=== PATIENT | male | born 1995 | race Caucasian/White ===

== ENCOUNTER 2023-10-26 00:02 | Inpatient (IN) | payer OTHER, SELFPAY ==
--- OUTSIDE RECORDS SUMMARY | 2023-10-26 00:07 | XMS_ITS | Continuity of Care Document ---
Author Organization [facility] [place], operated [facility] er Address [address] [place] [id number] Care Team Providers Care Yard Stocker Name Role Phone NONE, NONE Primary Care Physician Unavailab le Encounter 10/08/23 - 10/09/23 [facility] [address] [place] [address] [phone] Encounter Diagnosis Head pain, chronic(Discharge Diagnosis) - 10/09/23 Other chronic pain(Discharge Diagnosis) - 10/09/23 History of traumatic head injury(Discharge Diagnosis) - 10/09/23 Encounter for medical assessment(Discharge Diagnosis) - 10/09/23 Discharge Disposition: Home or Self Care 01 Attending Physician: AURORA JOHNS MD Admitting Physician: AURORA JOHNS MD Allergies, Adverse Reactions, Alerts Substance Reaction Severity Status Tape Rash Active Dairy Rash Active Vital Signs Most recent to oldest [Reference Range]: 1 Temperature Oral [36-38 Deg C] 36.8 Deg C (10/09/23 12:07 AM) Temperature Oral F [96.8-100.4 Deg F] 98 .2 Deg F (10/09/23 12:07 AM) Peripheral Pulse Rate [60-100 bpm] 56 bp m *LOW* (10/09/23 12:07 AM) Respiratory Rate [14-20 br/min] 16 br/mi n (10/09/23 12:07 AM) Blood Pressure [90-140/90 mmHg] 154/105m mHg *HI* (10/09/23 12:07 AM) Mean Arterial Pressure, Cuff [60-110 mmH g] 121 mmHg *HI* (10/09/23 12:07 AM) Height/Length Measured [124.5-243.8 cm] 178 cm (10/09/23 12:07 AM) [place] Body Weight Calculated 73.18 kg (10/09/23 12:07 AM) Weight ED 145 lb (10/09/23 12:07 AM) Weight Method Type Estimated (10/09/23 12:07 AM) Social History Social History Type Response Sex Male Hospital Discharge Instructions Patient Education 10/09/2023 01:13:48 Chronic Migraine Headache, Lbez-vl-Cpwj Chronic Migraine Headache A migraine headache is throbbing pain that is usually on one side of the head. Migraines that keep coming back are called recurring migraines. A migraine is called a chronic migraine if it happens atleast 15 days in a month for more than 3 months. Talk with your doctor about what things may bring on (trigger) your migraines. What are the causes? The exact cause of this condition is not known. A migraine may be caused when nerves in the brain become irritated and release chemicals that cause irritation and swelling (inflammation) of blood vessels. The irritation and swelling of the blood vessels causes pain. Migraines may be brought on or caused by: ??? Smoking. ??? Foods and drinks, such as: ??? Cheese. ??? Chocolate. ??? Alcohol. ??? Caffeine. ??? Certain substances in some foods or drinks. ??? Some medicines. Other things that may bring on a migraine include: ??? Periods, for women. ??? Stress. ??? Not enough sleep or too much sleep. ??? Feeling very tired. ??? Bright lights or loud noises. ??? Smells ??? Weather changes and being at high altitude. What increases the risk? The following factors may make you more likely to have chronic migraine: ??? Having migraines or family members who have them. ??? Being very sad (depressed) or feeling worried or nervous (anxious). ??? Taking a lot of pain medicine. ??? Having problems sleeping. ??? Having heart disease, diabetes, or being very overweight (obese). What are the signs or symptoms? Symptoms of this condition include: ??? Pain that feels like it throbs. ??? Pain that is usually only on one side of the head. In some cases, the pain may be on both sidesof the head or around the head or neck. ??? Very bad pain that keeps you from doing daily activities. ??? Pain that gets worse with activity. ??? Feeling like you may vomit (feeling nauseous) or vomiting. ??? Pain when you are around bright lights, loud noises, or activity. ??? Being sensitive to bright lights, loud noises, or smells. ??? Feeling dizzy. How is this treated? This condition is treated with: ??? Medicines. These help to: ??? Lessen pain and the feeling like you may vomit. ??? Prevent migraines. ??? Changes to your diet or sleep. ??? Therapy. This might include: ??? Relaxation training. ??? Biofeedback. This is a treatment that teaches you to relax, use your brain to lower your heart rate, and control your breathing. ??? Cognitive behavioral therapy (CBT). This therapy helps you set goals and follow up on the changes that you make. ??? Acupuncture. ??? Using a device that provides electrical stimulation to your nerves, which can help take away pain. ??? Surgery, if the other treatments do not work. Follow these instructions at home: Medicines ??? Take epyf-xkw-aohnrpw and prescription medicines only as told by your doctor. ??? Ask your doctor if the medicine prescribed to you requires you to avoid driving or using machinery. Lifestyle ??? Do not use any products that contain nicotine or tobacco, such as cigarettes, e-cigarettes, andchewing tobacco. If you need help quitting, ask your doctor. ??? Do not drink alcohol. ??? Get 7???9 hours of sleep each night. ??? Lower the stress in your life. Ask your doctor about ways to do this. ??? Stay at a healthy weight. Talk with your doctor if you need help losing weight. ??? Get regular exercise. General instructions ??? Keep a journal to find out if certain things bring on migraines. For example, write down: ??? What you eat and drink. ??? How much sleep you get. ??? Any change to your diet or medicines. ??? Lie down in a dark, quiet room when you have a migraine. ??? Try placing a cool towel over your head when you have a migraine. ??? Keep lights dim if bright lights bother you or make your migraines worse. ??? Keep all follow-up visits as told by your doctor. This is important. Where to find more information ??? Coalition for Headache and Migraine Patients (CHAMP): headachemigraine.org ??? [place] Migraine Foundation: americanmigrainefoundation.org ??? National Headache Foundation: headaches.org Contact a doctor if: ??? Medicine does not help your migraine. ??? Your pain keeps coming back. Get help right away if: ??? Your migraine becomes really bad and medicine does not help. ??? You have a stiff neck and fever. ??? You have trouble seeing. ??? Your muscles are weak or you lose control of them. ??? You lose your balance or have trouble walking. ??? You feel like you will faint or you faint. ??? You start having sudden, very bad headaches. ??? You have a seizure. Summary ??? A migraine headache is very bad, throbbing pain that is usually on one side of the head. ??? A chronic migraine is a migraine that happens 15 days in a month for more than 3 months. ??? Talk with your doctor about what things may bring on your migraines. ??? Lie down in a dark, quiet room when you have a migraine. ??? Keep a journal. This can help you find out if certain things make you have migraines. This information is not intended to replace advice given to you by your health care provider. Make sure you discuss any questions you have with your health care provider. Document Revised: 10/25/2022 Document Reviewed: 06/29/2020 [employer] Patient Education ?? 2022 [employer]. Follow Up Care 10/08/2023 23:56:49 With:Follow up with primary care provider Address:Unknown When:2 to 3 days only if needed Comments:Please follow-up with Neurology specialist for repeat evaluation of any persistent pain or symptomsReturn to the nearest ER sooner for any:Progression or worsening of your pain or symptoms in any wayChest pains or difficulty breathing of any kindNumbness/tingling/weakness in any of your arms or legsNew or worsening abdominal pains of any kindWorsening headache, visual changes, nausea or vomiting keeping you from eating or drinkingFevers or chillsAny other concerns that you have With:NONE NONE Address:Unknown When: Unknown Patient Care team information Care Team Personnel Name: NONE, NONE MD Position: View Only Member Role: Primary Care Physician
--- NOTE | 2023-10-26 00:43 | PC.NURSE ---
patient is a S12B. per his request [facility] was notified of admission.
[2023-10-26 01:27] VITALS: BP 117/68; PULSE 56; RESP 16; TEMP 36.4; O2SAT 97
[2023-10-26 01:34] VITALS: BMI 21.0
--- NOTE | 2023-10-26 04:09 | PC.ADMIT ---
Jaime Ridley is a 28yo male, admitted on 12B to M3 unit from [facility] for treatment of adjustment d/o unspecified. Pt was reported to be agitated/aggressive to staff at [facility] and was taken to [facility] ED for evaluation. Pt ran out of the procedure last night and the facility believe Pt ran away from program. Pt has past medical history of psychiatric behavioral with multiple admission. On admission at M3, he was easily irritable, mood is anxious and was agitating for d/c. He received and signed the notice of rights form for temporary involuntary hospitalization, [facility] was contacted per Pt request. Pt denies SI/HI or any psych symptoms. He was uncooperative during the admission procedure, refused to signed any release of information forms, did not fill my contact form and Pt statement of understanding form. He states that I am tired and don't want to be here. Pt refused to sleep in his room, states that I don't want any room mate. Skin check done, v/s stable, treatment plan and safety tools initiated.
[2023-10-26] MEDS: LORazepam 0.5 MG TABLET PO ×3 (05:55→20:13)
[2023-10-26] MEDS: Butalb/Acetamin/Caff 50/325/40 TABLET 1 TAB PO (09:54)
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
--- NOTE | 2023-10-26 11:37 | HO.PM.IMCN ---
History of Present Illness Data of Consult Service Date: 10/26/23 Primary Care Provider: Unknown Physician HPI Reason for consult: Admission H&P Pt is a 28-year-old male with a PMH significant for unspecified psychiatric behavior disorder who is admitted to M3 psychiatry unit for aggression and agitation at [facility]. Medical consult for admission H&P.?Patient unavailable for interview and examination. Review of medical records from [facility] reveal patient has no known chronic medical conditions nor had any acute medical complaints at time of presentation yesterday. Labs from ED reviewed, grossly unremarkable. All medical workup negative. Review of Systems Review of Systems: Patient unavailable for interview and examination PMFSH Social History Household Members: None Housing: Unknown / Unable to assess Housing Other:: detention Do you presently have visiting nurse or other home services: No Patient Tobacco Use Status: Never used Tobacco Smoked in Last 30 Days: No e-Cigarette/Vaping Use: Former Use Patient Interested in Nicotine Replacement: Yes Patient Given Instructions on How to Stop Smoking: No Second Hand Smoke Exposure: No Use of substances other than those prescribed or required for medical reasons: No Substance Use Type: Marijuana Substance Use Frequency: Occasionally Last Used Substance: Weeks (ago) Currently Displaying Signs/Symptoms of Drug Intoxication Withdrawal: No Any prior treatment program specific to substance use: No Have you been hit, kicked, punched, or otherwise hurt by someone within the past year? If so, by whom?: No Do you feel safe in your current relationship?: No Current Relationship Is there a partner from a previous relationship who is making you feel unsafe now?: No Are you made to feel afraid or neglected: No Advance Directives: No Advance Directives Information Provided: Yes Do you have thoughts of harming others: None Do you have a plan to hurt others: No Plan Recently lost weight without trying: No Eating poorly because of decreased appetite: No Nutrition Risks: No Nutritional Risk Poor oral hygiene: No Meds Allergies Allergy/AdvReac Type Severity Reaction Status Date / Time gluten Allergy Unknown Verified 10/26/23 01:30 lactase [From Dairy Aid] Allergy Unknown Verified 10/26/23 03:24 Active Medications: Current Medications Acetaminophen (Acetaminophen 325 Mg Tablet) 650 mg PO Q6H PRN PRN Reason: Headache/Pain Mild Scale (1-3) Acetaminophen/Butalbital/Caffeine (Butalb/Acetamin/Caff 50/325/40 Tablet) 1 tab PO DAILY PRN PRN Reason: Migraine Headache Last Admin: 10/26/23 09:54 Dose: 1 tab Al Hydroxide/Mg Hydroxide (Magnesium Hydrox/Alum Hydrox 30 Ml Oral.Susp) 30 ml PO Q6H PRN PRN Reason: Heartburn/Nausea Clonidine HCl (Clonidine Hcl 0.1 Mg Tablet) 0.1 mg PO TID PRN; Protocol PRN Reason: agitation Haloperidol (Haloperidol 5 Mg Tablet) 5 mg PO TID PRN PRN Reason: Psychosis Hydroxyzine HCl (Hydroxyzine Hcl 25 Mg Tablet) 25 mg PO Q6H PRN PRN Reason: Anxiety Ibuprofen (Ibuprofen 800 Mg Tablet) 800 mg PO Q8H PRN PRN Reason: Pain, Moderate(Pain Scale 4-6) Lorazepam (Lorazepam 0.5 Mg Tablet) 0.5 mg PO Q4H PRN PRN Reason: anxiety/agitation Last Admin: 10/26/23 11:15 Dose: 0.5 mg Magnesium Hydroxide (Milk Of Magnesia 30 Ml Oral.Susp) 30 ml PO DAILY PRN PRN Reason: Constipation Melatonin (Melatonin 3 Mg Tablet) 9 mg PO BEDTIME PRN PRN Reason: Sleep Trazodone HCl (Trazodone Hcl 50 Mg Tablet) 50 mg PO BEDTIME MRX1 PRN PRN Reason: Insomnia Home Medications ?Medication ?Instructions ?Recorded ?Confirmed ?Last Taken ?Type Haldol 5 mg PO TID Agitation 10/26/23 10/26/23 Unknown History arwsslaiww-ioochsaeglzja-ebdwywiu 1 tab PO DAILY PRN Pain 10/26/23 10/26/23 Unknown History 50 mg-325 mg-40 mg tablet clonidine 0.1 mg PO Q3-6H 10/26/23 10/26/23 Unknown History hydroxyzine pamoate 50 mg PO BID Anxiety 10/26/23 10/26/23 Unknown History ibuprofen 800 mg tablet 800 mg PO TID 10/26/23 10/26/23 Unknown History lorazepam 0.5 mg tablet (Ativan) 0.5 mg PO Q4-6H PRN Anxiety 10/26/23 10/26/23 Unknown History melatonin 9 mg PO BEDTIME PRN Insomnia 10/26/23 10/26/23 Unknown History Physical Exam Vital Signs and Narrative: Vital Signs: Last Vital Signs Temp 97.6 F 10/26/23 01:27 Pulse 56 10/26/23 01:27 Resp 16 10/26/23 01:27 BP 117/68 10/26/23 01:27 Pulse Ox 97 10/26/23 01:27 O2 Del Method Room Air 10/26/23 01:27 BMI result Body Mass Index 21.0 Patient unavailable for interview and examination Assessment and Plan (1) Medical clearance for psychiatric admission: Status: Acute Plan Pt is a 28-year-old male with a PMH significant for unspecified psychiatric behavior disorder who is admitted to M3 psychiatry unit for aggression and agitation at [facility]. Medical consult for admission H&P.?Patient unavailable for interview and examination. Mood disorder Plan as per Psychiatry Patient otherwise has no known chronic medical conditions or acute medical complaints. Signing off at this time. Thank you for allowing us to participate in the care of this patient. Please re-consult if anything acute arises.
[2023-10-26 20:00] VITALS: BP 118/66; PULSE 57; RESP 15; TEMP 37.2; O2SAT 98
[2023-10-26] MEDS: traZODone HCL 50 MG TABLET PO (20:52)
[2023-10-26] MEDS: Magnesium Hydrox/Alum Hydrox 30 ML ORAL.SUSP PO (20:52)
[2023-10-27 08:00] VITALS: BP 129/84; PULSE 62; RESP 15; TEMP 36.9; O2SAT 99
[2023-10-27 08:15] VITALS: BP 129/84
[2023-10-27] MEDS: cloNIDine HCL 0.1 MG TABLET PO (08:15)
[2023-10-27] MEDS: Butalb/Acetamin/Caff 50/325/40 TABLET 1 TAB PO (08:23)
[2023-10-27] MEDS: LORazepam 0.5 MG TABLET PO ×4 (08:23→22:02)
--- NOTE | 2023-10-27 11:14 | HO.PSYCHPN ---
Subjective Subjective Date of Service: 10/27/23 Reason For Visit: Adjustment Disorder Unspecified Subjective Notes: Section 12B Medical Problems Affecting Mental Status: No Interim History: met with patient. Discussed with nursing. Overall has been irritable at times. Concern regarding another peer on the unit. Is focused on ADHD medications, which were filled through mail order pharmacy in the [facility] and mailed to [place] where patient was living- Order Editor did update mass pat search including [facility], and outcome / results were still the same as per admission note. Is hopeful that he can get his property from [place], which does have his medication bottles there. Also discussed legal status and patient not applying for conditional voluntary in the context of understanding this would not be accepted, as discussed with admission H&P. Patient remains eager for discharge. From a treatment perspective we did discuss his mood being low, which seems more situational in nature other no other symptoms such as sleep disturbance, appetite, energy, lack of enjoyment etc.. No suicidal thoughts. Denies hallucinations. Denies HI. Reports parents are supportive and he will need to accept their help and therefore also be civil with his father. Side effects from medications: No Attending Groups: Intermittent Review of Systems Acute medical concerns: No Review of Systems Review of Systems Yes all other systems are reviewed and are negative Mental Status Exam Mental Status Exam Narrative: casually dressed. Self-care a little impaired. Guarded. Tangential at times and loosened thought form. Frustrated being in the hospital. No aggression or agitation. Adamantly denies SI, HI, hallucinations. Less guarded today. Insight and judgment limited Diagnostics Vital Signs (24Hr): Vital Signs - 24 hr 10/26/23 20:00 10/27/23 08:00 10/27/23 08:15 Temperature 99 F 98.4 F Pulse Rate 57 62 Respiratory Rate 15 15 Blood Pressure 118/66 129/84 129/84 Pulse Oximetry 98 99 Oxygen Delivery Method Room Air Room Air BMI result Body Mass Index 21.0 Medications Medications Current Medications Acetaminophen (Acetaminophen 325 Mg Tablet) 650 mg PO Q6H PRN PRN Reason: Headache/Pain Mild Scale (1-3) Acetaminophen/Butalbital/Caffeine (Butalb/Acetamin/Caff 50/325/40 Tablet) 1 tab PO DAILY PRN PRN Reason: Migraine Headache Last Admin: 10/27/23 08:23 Dose: 1 tab Al Hydroxide/Mg Hydroxide (Magnesium Hydrox/Alum Hydrox 30 Ml Oral.Susp) 30 ml PO Q6H PRN PRN Reason: Heartburn/Nausea Last Admin: 10/26/23 20:52 Dose: 30 ml Clonidine HCl (Clonidine Hcl 0.1 Mg Tablet) 0.1 mg PO TID PRN; Protocol PRN Reason: agitation Last Admin: 10/27/23 08:15 Dose: 0.1 mg Haloperidol (Haloperidol 5 Mg Tablet) 5 mg PO TID PRN PRN Reason: Psychosis Hydroxyzine HCl (Hydroxyzine Hcl 25 Mg Tablet) 25 mg PO Q6H PRN PRN Reason: Anxiety Ibuprofen (Ibuprofen 800 Mg Tablet) 800 mg PO Q8H PRN PRN Reason: Pain, Moderate(Pain Scale 4-6) Lorazepam (Lorazepam 0.5 Mg Tablet) 0.5 mg PO Q4H PRN PRN Reason: anxiety/agitation Last Admin: 10/27/23 08:23 Dose: 0.5 mg Magnesium Hydroxide (Milk Of Magnesia 30 Ml Oral.Susp) 30 ml PO DAILY PRN PRN Reason: Constipation Melatonin (Melatonin 3 Mg Tablet) 9 mg PO BEDTIME PRN PRN Reason: Sleep Trazodone HCl (Trazodone Hcl 50 Mg Tablet) 50 mg PO BEDTIME MRX1 PRN PRN Reason: Insomnia Last Admin: 10/26/23 20:52 Dose: 50 mg Allergies Allergies Allergy/AdvReac Type Severity Reaction Status Date / Time gluten Allergy Unknown Verified 10/26/23 01:30 lactase [From Dairy Aid] Allergy Unknown Verified 10/26/23 03:24 Assessment & Plan Assessment & Plan (1) Psychosis: Status: Acute Code(s): F29 - Unspecified psychosis not due to a substance or known physiological condition Assessment and Plan: Unclear history, but there does appear to be some concern around paranoia impacting interactions with others, most recently [place] detox facility. Also concern for a comorbid stimulant use disorder. It is also unclear if patient has any providers/prescribers and unable to search [facility] (or [place] mail order) on PDMP. Patient declining collateral contact. Will not prescribe any controlled substances, given above. 10/27/2023: No changes. Plan Pt is a 28-year-old male with a PMH significant for unspecified psychiatric behavior disorder who is admitted to psychiatry unit for aggression and agitation at [facility]. Medical consult for admission H&P.?Patient unavailable for interview and examination. Mood disorder Plan as per Psychiatry Patient otherwise has no known chronic medical conditions or acute medical complaints. Signing off at this time. Thank you for allowing us to participate in the care of this patient. Please re-consult if anything acute arises. Reason for continued inpatient stay Substantial Risk for: inability to function and rapid decompensation Time Spent With Patient Time: Total time managing care of this patient today ____ minutes.
[2023-10-27] MEDS: Magnesium Hydrox/Alum Hydrox 30 ML ORAL.SUSP PO ×2 (15:47→17:49)
[2023-10-27 20:20] VITALS: BP 123/73; PULSE 60; RESP 16; TEMP 37; O2SAT 98
[2023-10-27] MEDS: Melatonin 3 MG TABLET 9 MG PO (22:02)
[2023-10-27] MEDS: traZODone HCL 50 MG TABLET PO (22:02)
[2023-10-28] MEDS: LORazepam 0.5 MG TABLET PO ×5 (04:11→21:22)
[2023-10-28 08:00] VITALS: BP 120/80; PULSE 62; TEMP 37.2; O2SAT 99
[2023-10-28] MEDS: Butalb/Acetamin/Caff 50/325/40 TABLET 1 TAB PO (09:03)
--- NOTE | 2023-10-28 10:38 | MHC.CLN ---
NUTRITION ALERTED BY DINING STAFF THAT PATIENT IS FOLLOWING VEGAN, GLUTEN FREE DIET. VISITED WITH PATIENT ON UNIT. STATED THAT HAS A MILK ALLERGY, DOES NOT TAKE ANY ANIMAL PRODUCTS. KITCHEN PROVIDED SALADS WITH CHICK PEAS AND/OR KIDNEY BEANS OVER WEEKEND. PATIENT LIKED. CHANGED ALLERGY FROM LACTASE TO MILK CONTAINING PRODUCTS. ALERTED KITCHEN AND DISCUSSED WITH NURSE.
[2023-10-28] MEDS: Magnesium Hydrox/Alum Hydrox 30 ML ORAL.SUSP PO ×2 (10:56→21:17)
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
[2023-10-28] MEDS: Calcium Carbonate 750 MG TAB.CHEW PO (16:34)
[2023-10-28 19:41] VITALS: BP 145/91; PULSE 68; RESP 18; TEMP 36.8; O2SAT 98
[2023-10-28] MEDS: Melatonin 3 MG TABLET 9 MG PO (21:22)
[2023-10-28] MEDS: traZODone HCL 50 MG TABLET PO (21:22)
[2023-10-29] MEDS: LORazepam 0.5 MG TABLET PO ×6 (03:19→22:26)
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
[2023-10-29] MEDS: Butalb/Acetamin/Caff 50/325/40 TABLET 1 TAB PO (14:29)
--- NOTE | 2023-10-29 18:35 | PC.NURSE ---
Late entry: per provider Rebeka he to administer PRN ativan 1 hour early d/t ongoing agitation and increased anxiety.
[2023-10-29 20:00] VITALS: BP 128/78; PULSE 64; RESP 18; TEMP 36.2; O2SAT 97
[2023-10-29] MEDS: Magnesium Hydrox/Alum Hydrox 30 ML ORAL.SUSP PO (20:34)
[2023-10-29] MEDS: traZODone HCL 50 MG TABLET PO (22:26)
[2023-10-29] MEDS: Melatonin 3 MG TABLET 9 MG PO (22:26)
[2023-10-30] MEDS: LORazepam 0.5 MG TABLET PO ×2 (05:17→10:30)
[2023-10-30] MEDS: Butalb/Acetamin/Caff 50/325/40 TABLET 1 TAB PO (05:19)
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
== END 2023-10-30 10:55 | disposition home or self-care (01) | DRG 885 ==
PROVIDERS: Admitting Provider Psychiatry & Neurology Psychiatry; Responsible Provider Registered Nurse; Visit Provider Psychiatry & Neurology Psychiatry
DX: F29 Unspecified psychosis not due to a substance or known physiological condition (principal); Z79.899 Other long term (current) drug therapy

== ENCOUNTER → 2023-10-26 00:02 | Outpatient (BNV) | payer SELFPAY | PROVIDERS: Admitting Provider Psychiatry & Neurology Psychiatry; Visit Provider Student in an Organized Health Care Education/Training Program | DX: Z02.2 Encounter for examination for admission to residential institution (principal) | CPT/HCPCS: 99429 ==

== ENCOUNTER → 2023-10-26 00:02 | Outpatient (BNV) | payer OTHER, SELFPAY | PROVIDERS: Admitting Provider Psychiatry & Neurology Psychiatry; Visit Provider Psychiatry & Neurology Psychiatry | DX: F29 Unspecified psychosis not due to a substance or known physiological condition (principal) | CPT/HCPCS: 90792; 99231; 99238 ==